=== PATIENT | male | born 1990 ===

== ENCOUNTER 2024-03-07 11:25 | Outpatient (CLI) | payer OTHER | END 2024-03-07 23:59 | disposition short-term general hospital (02) | LOC: EMS 11:25 | DX: S97.81XA Crushing injury of right foot, initial encounter (principal); M25.571 Pain in right ankle and joints of right foot; M25.512 Pain in left shoulder; M54.2 Cervicalgia; W20.8XXA Other cause of strike by thrown, projected or falling object, initial encounter; Y93.H3 Activity, building and construction; Y92.69 Other specified industrial and construction area as the place of occurrence of the external cause; Y99.0 Civilian activity done for income or pay | CPT/HCPCS: A0425; A0427 ==